=== PATIENT | female | born 1935 ===

== ENCOUNTER 2017-10-21 08:56 | Emergency (ER) | payer OTHER ==
[~2017-10-21] VITALS: Ht 149.9 cm; Wt 43.1 kg
[2017-10-21] MEDS ORDERED: JANUVIA50 MG (09:11)
[2017-10-21] MEDS ORDERED: SYNTHROID75 MCG (09:11)
[2017-10-21] MEDS ORDERED: ASPIR 8181 MG (09:11)
[2017-10-21] MEDS ORDERED: AMLODIPINE-OLM1 EAC3 (09:11)
[2017-10-21] MEDS ORDERED: VASOTEC10 MG (09:11)
[2017-10-21] MEDS ORDERED: LOSARTAN POTASS25 MG (09:11)
[2017-10-21] MEDS ORDERED: NEURONTIN300 MG (09:15)
== END 2017-10-21 19:37 | disposition home or self-care (01) ==
LOC: ER 08:56
DX: K52.89 Other specified noninfective gastroenteritis and colitis (principal)